=== PATIENT | female | born 2000 | race Caucasian/White ===

== ENCOUNTER 2019-07-19 13:02 | Emergency (ER) | payer OTHER ==
[~2019-07-19] VITALS: Ht 172.7 cm; Wt 70.3 kg
[2019-07-19 13:07] VITALS: BP 120/74
== END 2019-07-19 13:38 | disposition home or self-care (01) ==
LOC: ED 13:02
DX: J03.90 Acute tonsillitis, unspecified (principal)
CPT/HCPCS: J7512